=== PATIENT | female | born 1975 | race Caucasian/White ===

== ENCOUNTER 2024-02-17 15:57 | Emergency (ER) | payer OTHER ==
[~2024-02-17] VITALS: Ht 162.6 cm; Wt 72.6 kg
[2024-02-17 16:48] LABS: BASOPHILS ABSOLUTE AUTO 0.06 K/mm3 (0.00-0.23); BASOPHILS PERCENT AUTO 1 % (0-2); EOSINOPHILS ABSOLUTE AUTO 0.08 K/mm3 (0.00-0.68); EOSINOPHILS PERCENT AUTO 2 % (0-6); Hematocrit 45.6 % (33.0-51.0); Hemoglobin 15.9 g/dL (11.5-16.0); IMMATURE GRAN ABSOLUTE AUTO 0.01 K/mm3 (0.00-0.10); IMMATURE GRAN PERCENT AUTO 0 % (0-1); LYMPHOCYTES ABSOLUTE AUTO 1.58 K/mm3 (0.84-5.20); LYMPHOCYTES PERCENT AUTO 34 % (21-46); MONOCYTES ABSOLUTE AUTO 0.44 K/mm3 (0.16-1.47); MONOCYTES PERCENT AUTO 10 % (4-13); Mean Corpuscular HGB 32.6 pg (26.0-34.0); Mean Corpuscular HGB Conc 34.9 g/dL (31.5-36.5); Mean Corpuscular Volume 93 fL (80-100); Mean Platelet Volume 8.9 fL (9.1-12.4); NEUTROPHILS ABSOLUTE AUTO 2.46 K/mm3 (1.96-9.15); NEUTROPHILS PERCENT AUTO 53 % (41-73); Platelet Count 154 K/mm3 (150-400); RDW Coefficient Variation 14.7 % (11.7-14.2); RDW Standard Deviation 51.4 fL (35.1-46.3); Red Blood Cell Count 4.88 M/mm3 (3.80-5.20); White Blood Cell Count 4.63 K/mm3 (4.00-11.30)
[2024-02-17 16:58] LABS: Source, Urine Clean Catch
[2024-02-17 17:02] LABS: Appearance, Urine Clear (Clear); Bilirubin, Urine Neg (Neg); Blood, Urine 3+ (Neg); Glucose Qualitative, Urine Neg (Neg); Ketones, Urine Neg (Neg); Leukocyte Esterase, Urine Neg (Neg); Nitrite, Urine Neg (Neg); Protein, Urine Neg (Neg); Specific Gravity, Urine 1.005 (1.003-1.022); Urobilinogen, Urine NORM (Normal)
[2024-02-17 17:10] LABS: Bilirubin, Total 0.7 mg/dL (0.1-1.0); Bun/Creatinine Ratio 9.1 (12.0-20.0); Creatinine, Blood 0.44 mg/dL (0.40-1.00); Globulin, Blood 4.1 g/dL (2.2-4.0); Potassium, Blood 5.4 mmol/L (3.5-5.5); Total Protein, Blood 8.1 g/dL (6.4-8.2)
[2024-02-17 17:24] LABS: Bacteria Few /hpf; Color, Urine Pale Yellow (P-Yellow); Red Blood Cells, Urine 0-2 /hpf (0-2); Squamous Epithelial Cells Few /hpf (Few); White Blood Cells, Urine 0-2 /hpf (0-5)
[2024-02-17 18:37] LABS: CORONAVIRUS COVID-19 AG Negative (NEGATIVE); INFLUENZA A AG Negative (NEGATIVE); INFLUENZA B AG Negative (NEGATIVE)
[2024-02-17] MEDS ORDERED: Ketorolac Tromethamine 30mg Vial IV ONE (19:30)
[2024-02-17] MEDS ORDERED: Ondansetron HCl 2 MG / ML 2ML Vial IV ONE (19:30)
[2024-02-17] MEDS ORDERED: ONDA4ODT MM (20:52)
== END 2024-02-17 20:59 | disposition home or self-care (01) ==
LOC: ER 15:57
PROVIDERS: Physician Assistant
DX: K52.9 Noninfective gastroenteritis and colitis, unspecified (principal); B34.9 Viral infection, unspecified; Z88.0 Allergy status to penicillin
CPT/HCPCS: 76705; 80053; 81001; 83690; 84703; 85025; 87428-QW; 96374; 96375; 99284-25; J1885; J2405

== ENCOUNTER → 2024-03-25 | Outpatient (CLI) | payer OTHER ==
[~2024-03-25] MED LIST: ONDA4ODT MM
== END | disposition home or self-care (01) ==
LOC: LAB SHORT 16:15 → LAB 16:15
DX: N39.0 Urinary tract infection, site not specified (principal)
CPT/HCPCS: 87077; 87086; 87186

== ENCOUNTER → 2024-05-06 | Outpatient (CLI) | payer OTHER ==
[2024-05-06 15:26] LABS: Candida Group, PCR NOT DETECTED (NOT DETECT); Candida glabrata-krusei, PCR NOT DETECTED (NOT DETECT)
[2024-05-06 21:26] LABS: Bacterial Vaginosis PCR Positive (NEGATIVE)
== END ==
LOC: LAB 12:17 → LAB SHORT 12:17
PROVIDERS: Nurse Practitioner Family
DX: R30.0 Dysuria (principal)
CPT/HCPCS: 81515; 87077; 87086; 87147; 87186

== ENCOUNTER → 2024-05-21 | Outpatient (CLI) | payer OTHER ==
[~2024-05-21] MED LIST changes: +BUPR150ER PO; +BUSP5 PO; +GABA300 PO; +HORMONE REPLACEMENT PO; +MELATONIN5 M1 PO; +PROGESTERONE200 M1 PO
[2024-05-21 15:39] LABS: Bacterial Vaginosis PCR Negative (NEGATIVE); Candida Group, PCR NOT DETECTED (NOT DETECT); Candida glabrata-krusei, PCR NOT DETECTED (NOT DETECT)
== END ==
LOC: LAB 13:07 → LAB SHORT 13:07
PROVIDERS: Nurse Practitioner Family
DX: N76.0 Acute vaginitis (principal)
CPT/HCPCS: 81515

== ENCOUNTER 2024-05-26 13:09 | Inpatient (IN) | payer OTHER ==
[~2024-05-26] VITALS: Ht 162.6 cm; Wt 72.6 kg
[2024-05-26] VITALS (12 sets, daily range): BP systolic 100–150; BP diastolic 68–98
[~2024-05-26 13:09] MED LIST changes: -BUPR150ER PO; -BUSP5 PO; -GABA300 PO; -HORMONE REPLACEMENT PO; -MELATONIN5 M1 PO; -PROGESTERONE200 M1 PO
[2024-05-26] MEDS ORDERED: Thiamine HCl 100 MG Tab PO ONE (13:50)
[2024-05-26] MEDS ORDERED: LORazepam 2 MG/ML 1ML Injection IV ONE ×3 (13:50→15:50)
[2024-05-26] MEDS ORDERED: Folic Acid 1 MG TAB PO ONE (13:50)
[2024-05-26] MEDS ORDERED: NS 1,000 ML IV SCH ×2 (13:50→15:55)
[2024-05-26 14:43] LABS: BASOPHILS ABSOLUTE AUTO 0.04 K/mm3 (0.00-0.23); BASOPHILS PERCENT AUTO 1 % (0-2); EOSINOPHILS ABSOLUTE AUTO 0.11 K/mm3 (0.00-0.68); EOSINOPHILS PERCENT AUTO 3 % (0-6); Hematocrit 32.8 % (33.0-51.0); Hemoglobin 11.5 g/dL (11.5-16.0); IMMATURE GRAN ABSOLUTE AUTO 0.01 K/mm3 (0.00-0.10); IMMATURE GRAN PERCENT AUTO 0 % (0-1); LYMPHOCYTES PERCENT AUTO 24 % (21-46); MONOCYTES ABSOLUTE AUTO 0.35 K/mm3 (0.16-1.47); MONOCYTES PERCENT AUTO 8 % (4-13); Mean Corpuscular HGB 33.9 pg (26.0-34.0); Mean Corpuscular HGB Conc 35.1 g/dL (31.5-36.5); Mean Corpuscular Volume 97 fL (80-100); Mean Platelet Volume 10.3 fL (9.1-12.4); NEUTROPHILS ABSOLUTE AUTO 2.74 K/mm3 (1.96-9.15); NEUTROPHILS PERCENT AUTO 65 % (41-73); Platelet Count 97 K/mm3 (150-400); RDW Coefficient Variation 13.2 % (11.7-14.2); RDW Standard Deviation 46.7 fL (35.1-46.3); Red Blood Cell Count 3.39 M/mm3 (3.80-5.20); White Blood Cell Count 4.25 K/mm3 (4.00-11.30)
[2024-05-26] MEDS ORDERED: PHENobarbital Sodium 65MG / ML 1ML Vial IV ONE ×2 (14:45→16:15)
[2024-05-26 14:55] LABS: Alanine Aminotransfer (ALT/SGP 80 U/L (12-78); Albumin, Blood 3.4 g/dL (3.4-5.0); Albumin/Globulin Ratio 1.2 (0.8-1.8); Alk Phos 45 U/L (50-136); Anion Gap 13 mmol/L (3-11); Aspartate Aminotrans (AST/SGOT 161 U/L (12-37); Bilirubin, Total 0.9 mg/dL (0.1-1.0); Blood Urea Nitrogen 11 mg/dL (8-24); Bun/Creatinine Ratio 18.5 (12.0-20.0); CO2, Blood 28 mmol/L (21-32); Calcium, Blood 9.9 mg/dL (8.5-10.1); Chloride, Blood 96 mmol/L (98-108); Creatinine, Blood 0.59 mg/dL (0.40-1.00); Ethanol (Alcohol), Blood, Med <3 mg/dL; Globulin, Blood 2.9 g/dL (2.2-4.0); Glomerular Filtration Rate 112 (60-); Glucose, Blood 85 mg/dL (70-99); Magnesium, Blood 1.3 mg/dL (1.6-2.4); Phosphorus, Blood 3.1 mg/dL (2.5-4.9); Potassium, Blood 3.7 mmol/L (3.5-5.5); Sodium, Blood 133 mmol/L (136-145); Total Protein, Blood 6.3 g/dL (6.4-8.2)
[2024-05-26] MEDS ORDERED: dexmedeTOMIDine 100 ML IV SCH ×2 (15:20→16:10)
[2024-05-26 15:40] LABS: U Amphetamine Screen Not Detected; U Barbituate Screen Not Detected; U Benzodiazapine Screen DETECTED; U Buprenorphine Screen Not Detected; U Cannabinoids Screen DETECTED; U Cocaine Screen Not Detected; U Methadone Screen Not Detected; U Methamphetamine Screen Not Detected; U Opiates Screen Not Detected; U Oxycodone Screen Not Detected; U Phencyclidine Screen Not Detected
[2024-05-26] MEDS ORDERED: ChlordiazePOXIDE 25 MG Cap PO PRN (15:55)
[2024-05-26] MEDS ORDERED: Ondansetron HCl 2 MG / ML 2ML Vial IV PRN (15:55)
[2024-05-26] MEDS ORDERED: LORazepam 2 MG/ML 1ML Injection IV PRN (15:55)
[2024-05-26] MEDS ORDERED: Enoxaparin 40 MG/0.4 ML SYR SC SCH (16:00)
[2024-05-26] MEDS ORDERED: Magnesium Sulf 2 GM/Water 50ML 50 ML IV STA (16:07)
[2024-05-26] MEDS ORDERED: Mag Sulfate 1 GM/D5% 100ML 100 ML IV ONE (16:30)
[2024-05-26 16:38] LABS: Free Thyroxine 0.98 ng/dL (0.70-1.60)
[2024-05-26 16:41] LABS: Thyroid Stimulating Hormone 3.12 uIU/mL (0.360-4.800)
[2024-05-26 16:49] LABS: Source, Urine Clean Catch
[2024-05-26 17:04] LABS: Magnesium, Blood 1.3 mg/dL (1.6-2.4); Phosphorus, Blood 3.6 mg/dL (2.5-4.9)
[2024-05-26 17:33] LABS: Bilirubin, Urine Neg (Neg); Blood, Urine Neg (Neg); Glucose Qualitative, Urine Neg (Neg); Ketones, Urine Neg (Neg); Leukocyte Esterase, Urine Neg (Neg); Nitrite, Urine Neg (Neg); Protein, Urine Neg (Neg); Specific Gravity, Urine 1.005 (1.003-1.022); Urobilinogen, Urine NORM (Normal)
[2024-05-26 17:46] LABS: Appearance, Urine Clear (Clear); Color, Urine Pale Yellow (P-Yellow)
[2024-05-26] MEDS ORDERED: NS 1,000 ML IV ONE (23:23)
[2024-05-27] VITALS (62 sets, daily range): BP systolic 105–175; BP diastolic 55–141
[2024-05-27 03:49] LABS: BASOPHILS ABSOLUTE AUTO 0.03 K/mm3 (0.00-0.23); BASOPHILS PERCENT AUTO 1 % (0-2); EOSINOPHILS ABSOLUTE AUTO 0.14 K/mm3 (0.00-0.68); EOSINOPHILS PERCENT AUTO 4 % (0-6); Hematocrit 34.6 % (33.0-51.0); Hemoglobin 11.9 g/dL (11.5-16.0); IMMATURE GRAN ABSOLUTE AUTO 0.02 K/mm3 (0.00-0.10); IMMATURE GRAN PERCENT AUTO 1 % (0-1); LYMPHOCYTES ABSOLUTE AUTO 1.07 K/mm3 (0.84-5.20); LYMPHOCYTES PERCENT AUTO 31 % (21-46); MONOCYTES ABSOLUTE AUTO 0.18 K/mm3 (0.16-1.47); MONOCYTES PERCENT AUTO 5 % (4-13); Mean Corpuscular HGB 33.4 pg (26.0-34.0); Mean Corpuscular HGB Conc 34.4 g/dL (31.5-36.5); Mean Corpuscular Volume 97 fL (80-100); Mean Platelet Volume 10.5 fL (9.1-12.4); NEUTROPHILS ABSOLUTE AUTO 2.03 K/mm3 (1.96-9.15); NEUTROPHILS PERCENT AUTO 59 % (41-73); Platelet Count 85 K/mm3 (150-400); RDW Coefficient Variation 13.2 % (11.7-14.2); RDW Standard Deviation 47.6 fL (35.1-46.3); Red Blood Cell Count 3.56 M/mm3 (3.80-5.20); White Blood Cell Count 3.47 K/mm3 (4.00-11.30)
[2024-05-27 04:05] LABS: Albumin, Blood 3.1 g/dL (3.4-5.0); Bilirubin, Total 0.8 mg/dL (0.1-1.0); Bun/Creatinine Ratio 24.5 (12.0-20.0); Calcium, Blood 8.4 mg/dL (8.5-10.1); Creatinine, Blood 0.45 mg/dL (0.40-1.00); Globulin, Blood 3.1 g/dL (2.2-4.0); Potassium, Blood 3.5 mmol/L (3.5-5.5); Total Protein, Blood 6.2 g/dL (6.4-8.2)
[2024-05-27] MEDS ORDERED: NS 250 ML IV PRN (08:30)
[2024-05-27] MEDS ORDERED: Thiamine HCl 100 MG in NS 50 ML IV SCH (09:00)
--- NOTE | 2024-05-27 12:08 | NUR ---
ASSUMPTION OF CARE: ASSUMED CARE AT START OF SHIFT (0700), HANDOFF REPORT RECEIVED FROM RN. PT IS DOING WELL, LYING IN BED. THEY WERE ADMITTED FOR ALCOHOL WITHDRAWLS. THEY ARE ALERT AND ORIENTED WILL ANSWER YES OR NO QUESTION AND ARE ABLE TO CORECCTLY STATE THEIR BIRTHDAY BUT WILL WON'T SAY THEIR FULL NAME. ALSO, THEY APPEAR TO HAVE VISUAL HALLUCINATIONS, THEY ARE REACHING OUT AND TRYING TO GRAB SOMETHING WITH THEIR HANDS AND WILL OCCASSIONALLY SHOUT OR TALK TO SOMETHING THAT ISN'T IN THE ROOM. THEY HAVE A PERIPHEARL IV'S IN BOTH ARMS. PT WILL BECOME AGITATED AND START SHOUTING, REMOVING BEDDING, AND KICKING LEGS, BUT COMBINATION OF PRECEDEX AND ATIVAN WILL HELP KEEP THEM CALM AND RELAXED. THEIR LINES, AND CORDS HAVE BEEN PLACED OUT OF THEIR WAY. CALL LIGHT HAS PLACED WITHIN REACH. WILL CONTINUE TO MONITOR.
[2024-05-27] MEDS ORDERED: Folic Acid 1 MG in NS 50 ML IV SCH (12:15)
[2024-05-27] MEDS ORDERED: Pantoprazole Sodium 40 MG Injection IV SCH (13:00)
--- NOTE | 2024-05-27 18:31 | NUR ---
SHIFT SUMMARY: PATIENT REMAINED CALM FOR MOST OF THE DAY. THEY DID HAVE SOME EPISODES WHERE THEY BECAME AGITATED WHERE THEY WOULD YELL OUT AND TRY TO CLIMBING OUT OF BED. PATIENT RECEIVED SOME ATIVAN IN ADDITION TO THE LOVENOX WHICH HELPED HER RELAX. THE PERIPHERAL IV IN THE LEFT ARM WAS INFILTRATED AND REMOVED. A POWERGLIDE WAS PLACED IN THE L UPPER ARM AND THE PERIPHERAL IV IN THE RIGHT HAND IS STILL GOOD. PT DOES HAVE A PUREWICK PLACE, BUT WHEN THEY BECOME RESTLESS THEY WILL PULL IT OUT. PT WAS STILL HAVING VISUAL HALLUCINATIONS THROUGHOUT THE DAY AND WILL RANDOMLY START REACHING OUT TRYING TO GRASP SOMETHING. THEIR LINES, CORDS, AND TUBES WERE PLACED OUT OF THEIR WAY AND THE CALL LIGHT WAS PLACED WITHIN THEIR REACH.
[2024-05-28] VITALS (61 sets, daily range): BP systolic 95–169; BP diastolic 58–111
--- NOTE | 2024-05-28 05:39 | NUR ---
SHIFT SUMMARY PT TOLERATES SECOND HALF OF SHIFT WITH NO INCIDENT. PT STARTED SHIFT UNCOOPERATIVE AND HALLUCINATING, NOT ANSWERING QUESTIONS APPROPRIATELY, AND ATTEMPTING TO TAKE OFF ALL VITAL SIGN MONITORING EQUIPMENT AND CLOTHES WHILE TRYING TO GET OUT OF BED. PT WAS GIVEN ATIVAN ORDERED AND PRECEDEX WAS TITRATED ORDERED. PT WAS EVENTUALLY ABLE TO CALM AND HAS SINCE BEEN RESTING IN BED. NO OTHER CHANGES HAVE OCCURED OVERNIGHT. WILL CONTINUE TO MONITOR UNTIL REPORT PASSED TO DAY SHIFT TEAM.
[2024-05-28 07:56] LABS: Hematocrit 35.1 % (33.0-51.0); Hemoglobin 12.3 g/dL (11.5-16.0); Mean Corpuscular HGB 33.2 pg (26.0-34.0); Mean Corpuscular Volume 95 fL (80-100); Mean Platelet Volume 10.2 fL (9.1-12.4); Platelet Count 95 K/mm3 (150-400); RDW Coefficient Variation 13.1 % (11.7-14.2); RDW Standard Deviation 44.9 fL (35.1-46.3); Red Blood Cell Count 3.71 M/mm3 (3.80-5.20); White Blood Cell Count 6.17 K/mm3 (4.00-11.30)
[2024-05-28 08:16] LABS: Albumin/Globulin Ratio 0.9 (0.8-1.8); Bilirubin, Total 0.9 mg/dL (0.1-1.0); Bun/Creatinine Ratio 11.3 (12.0-20.0); Calcium, Blood 8.1 mg/dL (8.5-10.1); Creatinine, Blood 0.53 mg/dL (0.40-1.00); Globulin, Blood 3.5 g/dL (2.2-4.0); Magnesium, Blood 1.4 mg/dL (1.6-2.4); Potassium, Blood 2.8 mmol/L (3.5-5.5); Total Protein, Blood 6.5 g/dL (6.4-8.2)
[2024-05-28] MEDS ORDERED: Potassium Chloride 40 MEQ in NS 250 ML IV ONE (13:10)
[2024-05-28] MEDS ORDERED: Magnesium Sulf 2 GM/Water 50ML 50 ML IV ONE (13:10)
--- NOTE | 2024-05-28 13:39 | NUR ---
UPDATE; PRECEDEX GTT ON STANDBY AT THIS TIME CIWA AT 5-6 HAS SOME MILD TREMORS CAN BE FELT, OTHERWISE REFUSED NAUSEA AND HEADACHE, HASNT NOTICED ANY HALLUCINATION SINCE THIS MORNING, PT WAS GIVEN LIBRIUM PO PRIOR TO PUTTING PRECEDEX ON STANDBY. PT WAS GIVEN UPDATE STATUS AND EDUCATED ABOUT [facility] PROTOCOL PT VERBALIZED UNDERSTANDING. PT HAS BEEN PLEASANT AND COOPERATIVE NOT TRYING TO GE OUT OF BED. PT ABLE TO FEED HERSELF LUNCH TOLERATED WELL. PUREWICK REMAINS IN PLACE, VOIDING WITH NO ISSUES. PT ALSO ABLE TO TALK TO DR NORIEGA WHEN ROUNDED. VITALS HRR SR 60'S, SBP 100-120'S, SATS ABOVE 94% ON RA, AFEBRILE. PT RESTING COMFORTABLY IN BED CALL LIGHTS IN REACH, BED ALARM ON FOR SAFETY, WILL CONTINUE TO MONITOR
[2024-05-28] MEDS ORDERED: GABA300 PO (16:58)
[2024-05-28] MEDS ORDERED: BUPR150ER PO (16:59)
[2024-05-28] MEDS ORDERED: BUSP5 PO (17:00)
[2024-05-28] MEDS ORDERED: MELATONIN5 M1 PO (17:01)
[2024-05-28] MEDS ORDERED: PROGESTERONE200 M1 PO (17:39)
[2024-05-28] MEDS ORDERED: HORMONE REPLACEMENT PO (17:42)
--- NOTE | 2024-05-28 18:22 | NUR ---
PT SUMMARY; NO ACUTE CHANGE SINCE LAST NOTE, PT GOT VERY ANXIOUS WHEN FAMILY CAME IN TO VISIT, WANTING TO GO HOME AND CRYING. PT ASKED FOR ANXIETY MEDS ATIVAN WAS GIVEN PT ABLE TO CALM DOWN, GOT UP IN THE RECLINER FOR DINNER 1PA VIA WALKER, NO ISSUES TRANSFERRING. ALSO RECONCILED HOME MEDS PT WAS ASKING FOR GABAPENTIN FOR NEUROPATHY PAIN. MD CALLED AND MADE AWARE. PT BACK IN BED RESTING. FAMILY WAS GIVEN UPDATE REGARDING PT'S STATUS. REMAINED OFF OF PRECEDEX GTT. VITALS DONNA SR AT 60'S, SBP 90-110'S, SATS ABOVE 95% ON RA, AFEBRILE. PT TOLERATING PO INTAKE ATE DINNER WITHOUT ANY ISSUES. CALL LIGHTS IN REACH WILL REPORT TO ONCOMING SHIFT
[2024-05-28] MEDS ORDERED: Nicotine 21 MG PATCH TOP SCH (20:00)
[2024-05-28] MEDS ORDERED: Melatonin 5 MG Tablet PO PRN (20:00)
--- NOTE | 2024-05-28 20:56 | NUR ---
ASSUMPTION OF CARE THIS RN ASSUMED CARE OF PATIENT AT 1900. PT A&O X3-4. UNSURE OF SPECIFIC DATE BUT KNOWS MONTH/YEAR. CIWA 8 AT THIS TIME. TREMORS/ANXIETY/DIAPHORESIS NOTED. MEDICATED PER EMAR WITH LIBRIUM. ON RA. SR ON TELE WITH PROLONGED QTC NOTED. OTHERWISE VSS. PT WAS ABLE TO AMBULATE WITH 1P ASSIST AND FWW TO TOILET TO VOID. BED ALARM ON FOR SAFETY AND FALL RISK. CALL PLACED TO PROVIDER ERICKA REGARDING NICOTINE PATCH, AND HOME MEDS THAT PT WAS REQUESTING. MEDICATIONS ORDERED PER PROVIDER. BED IN LOWEST POSITION AND CALL LIGHT WITHIN REACH.
[2024-05-28] MEDS ORDERED: Gabapentin 300 MG Cap PO SCH (21:00)
[2024-05-29] VITALS (10 sets, daily range): BP systolic 114–142; BP diastolic 70–93
[2024-05-29 04:23] LABS: Albumin, Blood 2.8 g/dL (3.4-5.0); Anion Gap 12 mmol/L (3-11); Blood Urea Nitrogen 6 mg/dL (8-24); Bun/Creatinine Ratio 12.7 (12.0-20.0); CO2, Blood 25 mmol/L (21-32); Calcium, Blood 8.2 mg/dL (8.5-10.1); Chloride, Blood 101 mmol/L (98-108); Creatinine, Blood 0.47 mg/dL (0.40-1.00); Glomerular Filtration Rate 118 (60-); Glucose, Blood 79 mg/dL (70-99); Phosphorus, Blood 3.2 mg/dL (2.5-4.9); Potassium, Blood 3.1 mmol/L (3.5-5.5); Sodium, Blood 135 mmol/L (136-145)
[2024-05-29] MEDS ORDERED: Potassium Chloride 20 MEQ TabCR PO ONE (04:45)
--- NOTE | 2024-05-29 05:21 | NUR ---
SHIFT SUMMARY SEE PREVIOUS NOTE AND ASSESSMENT NO ACUTE CHANGES OVERNIGHT. PT ONLY MEDICATED X1 WITH LIBRIUM FOR CIWA OF 8. OTHERWISE CIWAS 3-5. CALLING APPROPRIATELY. PT CONTINUES TO HAVE PROLONGED QTC. OTHERWISE NO EVENTS ON TELE AND NSR. BP STABLE. ON RA. REPOSITIONING SELF IN BED. AMBULATING TO BATHROOM WITH 1P AND FWW. BED ALARM ON FOR SAFETY. CALL PLACED TO MD STEVE REGARDING POTASSIUM OF 3.1 THIS AM; ORDER FOR 40MEW KCL PO RECEIVED; MEDICATING PER EMAR. BED IN LOWEST POSITION AND CALL LIGHT WITHIN REACH. THIS RN WILL REPORT TO ONCOMING DAYSHIFT RN.
[2024-05-29] MEDS ORDERED: ChlordiazePOXIDE 25 MG Cap PO PRN (07:50)
--- NOTE | 2024-05-29 08:00 | NUR ---
NURSING ICU DAYSHIFT: Assumed care of pt at approx 0700. Alert, pleasant, cooperative w/care. Tearful this morning d/t current medical situation and expressing desire to discharge home rather than back to [facility]. Skin intact, no breakdown noted. Denies any pain/discomfort at rest. Ambulates w/one staff assist using FWW. Cardiac monitoring in place, NSR HR 80's, SBP 140's, no c/o CP/pressure, no noted edema. L/S cta t/o, O2 sat mid to upper 90's in RA, denies dypsnea, no noted cough. Abd SNT, BT+, voiding w/o difficulty. PIV x1, PG x1, both s/l. Talked to patient for some time discussing family as well as situation that lead to [facility] admission and current w/d process. Pt verbalized understanding and importance of continued treatment though still expresses desire not to return to [facility]. Ambulation to toilet, tolerated fairly well though continues to requires assistance. Pt agreeable to work w/PT if required. Awaiting rounding from PMD, call light in reach, cont to monitor for changes.
[2024-05-29] MEDS ORDERED: Thiamine HCl 100 MG Tab PO SCH (09:00)
[2024-05-29] MEDS ORDERED: Multivitamins 1 Tab PO SCH (09:00)
--- NOTE | 2024-05-29 18:03 | NUR ---
NURSING ICU DAYSHIFT SUMMARY: Pt has done very well t/o the shift. Seen by PMD, new d/o received. Worked with PT/OT, ambulating t/o unit and halls, tolerated well though continues to require supervision for safety. Changed to medical status w/o tele. CIWAs have remained low t/o shift though some increased anxiety and mild clamminess this afternoon, pt requested librium at that time. S/O at bedisde this afternoon, plan of care discussed. Pt is hopeful to return home tomorrow morning and continue outpatient sobriety/treatment. No s/s of acute distress at this time. Pt sitting up in bed watching TV and using personal phone. Denies any current questions/needs. Cont to monitor until rpt is given to KSENIA RN.
--- NOTE | 2024-05-30 03:48 | NUR ---
SHIFT SUMMARY: PT IS ALERT AND ORIENTED ABLE TO MAKE NEEDS KNOWN, SLIGHT WEAKNESS WITH MOBILKITY BUT ABLE TO UNDERSTAND CURRENT LIMITATIONS, NSR VSS, ROOM AIR, CONT OF BAB NO SKIN ISSUES, PT IS READY AND EAGER TO DISCHARE, EDUCATION PROVIDED RT ETOH USE AND ABSTINENCE, PT IS EAGER TO COMPETE HER GOALS OF SOBRIETY
[2024-05-30] MEDS ORDERED: Pantoprazole Sodium 40 MG Tab PO SCH (06:00)
[2024-05-30 09:04] VITALS: BP 135/97
[2024-05-30] MEDS ORDERED: B-1100 M1 PO (10:25)
[2024-05-30] MEDS ORDERED: DAILY-VITE1 EAC1 PO (10:26)
[2024-05-30 11:00] VITALS: BP 136/72
--- NOTE | 2024-05-30 12:00 | NUR ---
DISCHARGE NOTE PT DISCHARGED AT 1115. ESCORTED TO FRIEND'S POV VIA WHEELCHAIR BY RN WITH ALL PERSONAL BELONGINGS. HOSPITAL STAY, DX, EDUCATION, FOLLOW UP CARE, AND MEDICATIONS DISCUSSED AT BEDSIDE WITH PT. VERBALIZED UNDERSTANDING WITH NO FURTHER QUESTIONS. DANNI HICKEY'D. NEW PRESCRIPTIONS SENT TO PHARMACY.
== END 2024-05-30 11:10 | disposition home or self-care (01) | DRG 897 ==
LOC: ER 13:09 → ICUE 15:51 → ERHOLD 15:51 → ICUE 20:00
PROVIDERS: Emergency Medicine; Internal Medicine; ADMIT Internal Medicine
PROC: HZ2ZZZZ Detoxification Services for Substance Abuse Treatment (ICD-10-PCS; principal; 2024-05-27)
DX: F10.231 Alcohol dependence with withdrawal delirium (principal); E87.1 Hypo-osmolality and hyponatremia; R45.1 Restlessness and agitation; R44.1 Visual hallucinations; E83.42 Hypomagnesemia; R74.01 Elevation of levels of liver transaminase levels; R71.8 Other abnormality of red blood cells; F12.10 Cannabis abuse, uncomplicated; F13.10 Sedative, hypnotic or anxiolytic abuse, uncomplicated; D69.59 Other secondary thrombocytopenia; E87.6 Hypokalemia; Y90.0 Blood alcohol level of less than 20 mg/100 ml; F41.9 Anxiety disorder, unspecified; F17.210 Nicotine dependence, cigarettes, uncomplicated; G62.1 Alcoholic polyneuropathy; Z79.899 Other long term (current) drug therapy; Z88.0 Allergy status to penicillin
CPT/HCPCS: 36415; 70450; 80053; 80069; 80320; 81003; 82140; 83735; 83880; 84100; 84439; 84443; 85025; 85027; 94762; 96361; 96374; 96375; 96376; 97112; 97116; 97161; 97165; 97535; 99285-25; A9270; C1751; J1650; J2060; J2470; J2560; J3411; J3475; J3480; J7030; J7050

== ENCOUNTER 2024-06-03 09:46 | Emergency (ER) | payer OTHER ==
[~2024-06-03] VITALS: Ht 162.6 cm; Wt 77.1 kg
[~2024-06-03 09:46] MED LIST changes: +B-1100 M1 PO; +BUPR150ER PO; +BUSP5 PO; +DAILY-VITE1 EAC1 PO; +GABA300 PO; +HORMONE REPLACEMENT PO; +MELATONIN5 M1 PO; +PROGESTERONE200 M1 PO
[2024-06-03 12:11] LABS: BASOPHILS ABSOLUTE AUTO 0.07 K/mm3 (0.00-0.23); BASOPHILS PERCENT AUTO 1 % (0-2); EOSINOPHILS ABSOLUTE AUTO 0.26 K/mm3 (0.00-0.68); EOSINOPHILS PERCENT AUTO 5 % (0-6); Hematocrit 40.5 % (33.0-51.0); Hemoglobin 13.4 g/dL (11.5-16.0); IMMATURE GRAN ABSOLUTE AUTO 0.02 K/mm3 (0.00-0.10); IMMATURE GRAN PERCENT AUTO 0 % (0-1); LYMPHOCYTES ABSOLUTE AUTO 1.43 K/mm3 (0.84-5.20); LYMPHOCYTES PERCENT AUTO 29 % (21-46); MONOCYTES ABSOLUTE AUTO 0.64 K/mm3 (0.16-1.47); MONOCYTES PERCENT AUTO 13 % (4-13); Mean Corpuscular HGB 32.9 pg (26.0-34.0); Mean Corpuscular HGB Conc 33.1 g/dL (31.5-36.5); Mean Corpuscular Volume 100 fL (80-100); Mean Platelet Volume 8.9 fL (9.1-12.4); NEUTROPHILS ABSOLUTE AUTO 2.45 K/mm3 (1.96-9.15); NEUTROPHILS PERCENT AUTO 50 % (41-73); Platelet Count 230 K/mm3 (150-400); RDW Coefficient Variation 13.2 % (11.7-14.2); RDW Standard Deviation 48.3 fL (35.1-46.3); Red Blood Cell Count 4.07 M/mm3 (3.80-5.20); White Blood Cell Count 4.87 K/mm3 (4.00-11.30)
[2024-06-03 12:36] LABS: Albumin, Blood 3.7 g/dL (3.4-5.0); Bilirubin, Total 0.2 mg/dL (0.1-1.0); Bun/Creatinine Ratio 7.3 (12.0-20.0); Creatinine, Blood 0.55 mg/dL (0.40-1.00); Globulin, Blood 3.6 g/dL (2.2-4.0); Total Protein, Blood 7.3 g/dL (6.4-8.2)
== END 2024-06-03 13:36 | disposition home or self-care (01) ==
LOC: ER 09:46
PROVIDERS: Emergency Medicine
DX: H53.8 Other visual disturbances (principal); M25.552 Pain in left hip; W19.XXXA Unspecified fall, initial encounter; Z88.0 Allergy status to penicillin; Z79.899 Other long term (current) drug therapy
CPT/HCPCS: 70450; 73502; 80053; 85025; 93005; 93010; 99285-25

== ENCOUNTER → 2025-01-01 | Outpatient (CLI) | payer OTHER ==
[2025-01-04 10:13] LABS: VITAMIN B1,WHOLE BLOOD 152 nmol/L (70-180)
== END ==
LOC: LAB 14:55 → LAB SHORT 14:55
PROVIDERS: Nurse Practitioner Family
DX: Z00.00 Encounter for general adult medical examination without abnormal findings (principal)
CPT/HCPCS: 82306; 82607; 82746; 84425

== ENCOUNTER → 2025-01-02 | Outpatient (CLI) | payer OTHER | LOC: LAB 18:35 → LAB SHORT 18:35 | DX: M25.521 Pain in right elbow (principal) | CPT/HCPCS: 87077; 87086; 87186 ==

== ENCOUNTER → 2025-01-14 | Outpatient (CLI) | payer OTHER | END | disposition home or self-care (01) | LOC: LAB SHORT 11:42 → LAB 11:42 | DX: R30.0 Dysuria (principal) | CPT/HCPCS: 87086 ==